=== PATIENT | male | born 1985 | race Caucasian/White ===

== ENCOUNTER 2024-04-16 15:05 | Emergency (ER) | payer SELFPAY ==
[~2024-04-16] VITALS: Ht 165.1 cm; Wt 74.0 kg
[2024-04-16 15:12] VITALS: O2SAT 100
[2024-04-16 15:44] LABS: EOSINOPHILS % 3.9 % (0.0-5.0); HEMATOCRIT. 44.7 % (42.0-52.0); HEMOGLOBIN. 15.4 g/dL (14.0-18.0); LYMPHOCYTES % 25.8 % (20.0-50.0); MEAN CORPUSCULAR HEMOGLOBIN 30.9 pg (28.0-32.0); MEAN CORPUSCULAR HGB CONC 34.5 g/dL (31.0-37.0); MEAN CORPUSCULAR VOLUME 89.7 fL (80.0-94.0); MEAN PLATELET VOLUME 7.9 fl (7.4-10.4); MONOCYTES % 9.6 % (2.0-8.0); NEUTROPHILS % 59.7 % (40.0-76.0); PLATELET 266 x1000/uL (130-400); RED BLOOD CELL COUNT 4.98 mill/uL (4.7-6.1); RED CELL DISTRIBUTION WIDTH 13.4 % (11.6-14.6); WHITE BLOOD COUNT 5.1 x1000/uL (4.5-11.0)
[2024-04-16 15:52] LABS: CHLORIDE 107 mEq/L (98-107); SODIUM 140 mEq/L (136-145)
[2024-04-16 15:53] LABS: CALCIUM 9.3 mg/dL (8.7-10.4); CARBON DIOXIDE 30 mEq/L (21-32)
[2024-04-16 15:58] LABS: CREATININE 1.1 mg/dL (0.6-1.3); GLUCOSE 100 mg/dL (70-105); UREA NITROGEN BLOOD 10 mg/dL (9-23)
[2024-04-16 16:03] LABS: TROPONIN I HIGH SENSITIVITY < 4 ng/L (3.0-53)
[2024-04-16] MEDS ORDERED: IBUPROFEN 600MG TABLET PO ONE (16:30)
[2024-04-16 16:47] VITALS: BP 126/84; PULSE 66; RESP 18; TEMP 37.05852; O2SAT 99
== END 2024-04-16 17:24 | disposition home or self-care (01) ==
LOC: ER 15:05
DX: R07.89 Other chest pain (principal)
CPT/HCPCS: 36415; 71045; 80048; 84484; 85025; 93005; 99285